=== PATIENT | female | born 1995 | race Caucasian/White ===

== ENCOUNTER → 2020-12-29 | Outpatient (CLI) | payer OTHER | END | disposition home or self-care (01) | LOC: LAB 12:10 → LAB SHORT 12:10 | PROVIDERS: Obstetrics & Gynecology | DX: Z01.419 Encounter for gynecological examination (general) (routine) without abnormal findings (principal) | CPT/HCPCS: G0123 ==

== ENCOUNTER → 2022-04-23 | Outpatient (CLI) | payer OTHER | END | disposition home or self-care (01) | LOC: LAB 13:17 → LAB SHORT 13:17 | DX: Z34.03 Encounter for supervision of normal first pregnancy, third trimester (principal) | CPT/HCPCS: 87081; 87150 ==

== ENCOUNTER → 2024-08-14 | Outpatient (CLI) | payer SELFPAY ==
[~2024-08-14] MED LIST: B-6200 MG PO; Colace100 MG PO; IBUP800 PO; ONDA4ODT MM; PRENATAL TABLE1 EAC2 PO; UNISOM PM PAIN1 EACH PO
[2024-08-17 16:18] LABS: C. TRACHOMATIS BY TMA,THINPREP Negative (Negative); N. GONORRHOEAE BY TMA,THINPREP Negative (Negative); SPECIMEN SOURCE Cervical
[2024-08-20 14:12] LABS: HPV HIGH RISK BY TMA Not Detected; HPV SOURCE Cervical/Vag
== END | disposition home or self-care (01) ==
LOC: LAB 10:35 → LAB SHORT 10:35
PROVIDERS: Obstetrics & Gynecology
DX: Z34.81 Encounter for supervision of other normal pregnancy, first trimester (principal)
CPT/HCPCS: 87491; 87591; 87624; G0123

== ENCOUNTER 2025-02-10 21:36 | Inpatient (IN) | payer OTHER ==
[~2025-02-10] VITALS: Ht 165.1 cm; Wt 92.0 kg
[2025-02-10 21:45] VITALS: BP 127/83
[2025-02-10] MEDS ORDERED: FentaNYL Citrate 50 MCG/ML 2 ML Injection IV PRN (23:55)
[2025-02-10] MEDS ORDERED: FentaNYL 2mcg/ml-Bup 0.1% Epd 250 ML EPI PRN (23:55)
[2025-02-10] MEDS ORDERED: Tranexamic Acid 100 ML IV SCH (23:55)
[2025-02-10] MEDS ORDERED: Methylergonovine Maleate 0.2MG / ML 1ML Amp IM PRN (23:55)
[2025-02-10] MEDS ORDERED: ePHEDrine Sulfate 50 MG/ML 1ML Injection XX PRN (23:55)
[2025-02-10] MEDS ORDERED: Ondansetron HCl 2 MG / ML 2ML Vial IV PRN (23:55)
[2025-02-10] MEDS ORDERED: OXYTOCIN/RINGER'S LACTATE 500 ML IV PRN (23:55)
[2025-02-10] MEDS ORDERED: Carboprost Tromethamine 250 MCG/ML 1ML Amp IM PRN (23:55)
[2025-02-10] MEDS ORDERED: Oxytocin 10 Unit / ML Vial IM PRN (23:55)
[2025-02-11] VITALS (12 sets, daily range): BP systolic 120–158; BP diastolic 63–82
[2025-02-11 00:27] LABS: BASOPHILS ABSOLUTE AUTO 0.03 K/mm3 (0.00-0.23); BASOPHILS PERCENT AUTO 0 % (0-2); EOSINOPHILS ABSOLUTE AUTO 0.02 K/mm3 (0.00-0.68); EOSINOPHILS PERCENT AUTO 0 % (0-6); Hematocrit 37.2 % (33.0-51.0); Hemoglobin 12.5 g/dL (11.5-16.0); IMMATURE GRAN ABSOLUTE AUTO 0.07 K/mm3 (0.00-0.10); IMMATURE GRAN PERCENT AUTO 0 % (0-1); LYMPHOCYTES ABSOLUTE AUTO 1.54 K/mm3 (0.84-5.20); LYMPHOCYTES PERCENT AUTO 10 % (21-46); MONOCYTES ABSOLUTE AUTO 0.82 K/mm3 (0.16-1.47); MONOCYTES PERCENT AUTO 5 % (4-13); Mean Corpuscular HGB Conc 33.6 g/dL (31.5-36.5); Mean Corpuscular Volume 84 fL (80-100); NEUTROPHILS ABSOLUTE AUTO 13.43 K/mm3 (1.96-9.15); NEUTROPHILS PERCENT AUTO 84 % (41-73); NRBC ABSOLUTE 0.00 K/mm3 (0.00-0.02); NRBC Auto 0.0 /100 WBC (0.0-0.2); Platelet Count 202 K/mm3 (150-400); RDW Coefficient Variation 13.4 % (11.7-14.2); RDW Standard Deviation 41.6 fL (35.1-46.3)
[2025-02-11] MEDS ORDERED: Ketorolac Tromethamine 30mg Vial IV PRN (03:25)
[2025-02-11] MEDS ORDERED: Witch Hazel/Glycerin PADS TOP PRN (03:25)
[2025-02-11] MEDS ORDERED: OXYTOCIN/RINGER'S LACTATE 500 ML IV SCH (03:30)
[2025-02-11] MEDS ORDERED: Carboprost Tromethamine 250 MCG/ML 1ML Amp IM PRN (03:30)
[2025-02-11] MEDS ORDERED: Benzocaine Topical Anesthetic Spray 60GM TOP PRN (03:30)
[2025-02-11] MEDS ORDERED: Methylergonovine Maleate 0.2MG / ML 1ML Amp IM PRN (03:35)
[2025-02-11] MEDS ORDERED: Prenatal Vit/FE Fumarate/FA 1 Tab PO SCH (09:00)
[2025-02-12 00:19] VITALS: BP 117/77
[2025-02-12 05:20] VITALS: BP 129/68
[2025-02-12 08:34] VITALS: BP 131/76
== END 2025-02-12 09:22 | disposition home or self-care (01) | DRG 807 ==
LOC: OBS 21:36 → BC 21:41 → OBS 23:20 → BC 23:24
PROVIDERS: ADMIT Obstetrics & Gynecology
PROC: 10E0XZZ Delivery of Products of Conception, External Approach (ICD-10-PCS; principal; 2025-02-11)
PROC: 10907ZC Drainage of Amniotic Fluid, Therapeutic from Products of Conception, Via Natural or Artificial Opening (ICD-10-PCS; 2025-02-11)
PROC: 4A1HXCZ Monitoring of Products of Conception, Cardiac Rate, External Approach (ICD-10-PCS; 2025-02-11)
DX: O70.0 First degree perineal laceration during delivery (principal); Z37.0 Single live birth; Z3A.40 40 weeks gestation of pregnancy; Z88.0 Allergy status to penicillin; Z88.2 Allergy status to sulfonamides; Z88.8 Allergy status to other drugs, medicaments and biological substances
CPT/HCPCS: 36415; 59025; 81003; 85025; 86850; 86900; 86901; 90707; 99214; A9270; J1885; J2590